=== PATIENT | male | born 1970 | race Caucasian/White ===

== ENCOUNTER 2020-02-25 01:23 | Emergency (ER) | payer OTHER ==
[~2020-02-25] VITALS: Ht 185.4 cm; Wt 65.9 kg
[2020-02-25 03:50] VITALS: BP 148/95
== END 2020-02-25 04:20 | disposition home or self-care (01) ==
LOC: EMS 01:23
DX: S96.911A Strain of unspecified muscle and tendon at ankle and foot level, right foot, initial encounter (principal); I10 Essential (primary) hypertension; F17.210 Nicotine dependence, cigarettes, uncomplicated; X50.1XXA Overexertion from prolonged static or awkward postures, initial encounter; Y93.89 Activity, other specified; Y92.89 Other specified places as the place of occurrence of the external cause; Y99.8 Other external cause status
CPT/HCPCS: 99406